=== PATIENT | female | born 1985 | race American Indian/Alaskan Native ===

== ENCOUNTER 2017-01-28 00:08 | Emergency (ER) | payer MEDICAID, MEDICARE ==
[2017-01-28 00:56] LABS: Basophils % (Auto) 0.4 % (0.0-1.8); Eosinophils % (Auto) 0.7 % (0.0-4.3); Hematocrit 37.3 % (30.3-42.9); Hemoglobin 12.4 gm/dl (10.1-14.3); Mean Corpuscular HGB Conc 33 % (30-34); Mean Corpuscular Hemoglobin 28 pg (28-32); Mean Corpuscular Volume 85 fl (79-97); Platelet Count 279 K/mm3 (140-440); Red Cell Distribution Width 13.1 % (13.2-15.2); White Blood Count 10.7 K/mm3 (4.5-11.0)
--- NOTE | 2017-01-28 02:05 | Ultrasound Report ---
FINAL REPORT PROCEDURE: US OB \T\gt; = 14 WEEKS FETUS TECHNIQUE: Real-time limited sonographic examination was performed for evaluation of size, position, heartbeat, fluid volume for each fetus with image documentation (1 or more fetuses). CPT 25508 HISTORY: 19 WEEKS PREG / VAG BLEEDING COMPARISON: No prior studies are available for comparison. FINDINGS: FETUS IUP: Single living intrauterine . Position: Breech. Placental position: Posterior, without previa . Amniotic fluid volume: Normal . Heart rate and rhythm: 151 BPM, Regular . anatomic survey: Not performed. MEASUREMENTS BPD: 3.5 centimeters corresponding to 17 weeks and 1 day. HC: 13.7 centimeters correspond is 17 weeks and 1 day. AC: 11.2 centimeters correspond is 17 weeks. FL: 2.5 centimeters correspond to 17 weeks and 3 days. Mean Gestational Age (composite criteria): 17 weeks and 1 day. Ratio biometry: Normal . Estimated Weight: 185 grams. Interval growth: No prior study available for comparison. Estimated Due Date (earliest scan): 07/07/2017. IMPRESSION: 1. Single living intrauterine gestation at approximately 17 weeks and 1 day. 2. EDC by US 07/07/2017.
[2017-01-28 03:58] LABS: Bilirubin,Urine NEG (Negative); Blood,Urine MOD (Negative); Ketones,Urine NEG (Negative); Leukocyte Esterase,Urine NEG (Negative); Mucus,Urine 1+ /HPF; Nitrite,Urine NEG (Negative); Uric Acid Crystals,Urine 2+; Urobilinogen,Urine < 2.0 mg/dL (<2.0)
[2017-01-28] MEDS ORDERED: TYLENOL PO ONE (04:02)
--- NOTE | 2017-01-28 04:11 | Emergency Department Report ---
HPI - General Chief Complaint: Vaginal Bleeding Time Seen by Provider: 01/28/17 03:32 - HPI HPI: This is a 31-year-old Afro-[place] female presents to the emergency department with complaint of 2-3 days of some vaginal bleeding with occasional clots as well as bilateral lower abdominal discomfort. The patient is about 18 or 19 weeks . With this she is with 2 previous stillbirths, a molar and 2 previous miscarriages with 3 live children. She called her [employer], Dr. Cobb, to tell her about the bleeding and abdominal pain and she was told to come to the emergency department for further evaluation. She has not taken anything for her symptoms prior to presentation. 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, recurrent infections) Hx Sickle Cell Disease: No - Surgical History Past Surgical History?: Yes Additional Surgical History: C SECTIONS X 3 - Social History Smoking Status: Never Smoker Substance Use Type: None - Medications Home Medications: Home Medications Medication Instructions Recorded Confirmed Last Taken Type ALBUTEROL Inhaler [Proair] 2 puff IH QID PRN 07/23/15 07/23/15 6 Months Ago History ARIPiprazole [Abilify] 15 mg PO DAILY 07/23/15 07/23/15 07/28/15 History DULoxetine [Cymbalta] 30 mg PO BID 07/23/15 07/23/15 07/28/15 History Pregabalin [Lyrica] 75 mg PO DAILY 07/23/15 07/23/15 07/28/15 History SUMAtriptan SUCCINATE [SUMAtriptan 50 mg PO DAILY 07/23/15 07/23/15 07/28/15 History Succinate] Ibuprofen [Motrin] 800 mg PO Q8HR PRN #60 tablet 07/29/15 Unknown Rx oxyCODONE /ACETAMINOPHEN [Percocet 1 tab PO Q6HR PRN #30 tablet 07/29/15 Unknown Rx 5/325] ED Review of Systems ROS: Stated complaint: 19 WEEKS PREG/ PASSING BLOOD CLOTS Other details as noted in HPI Comment: All other systems reviewed and negative Constitutional: denies: chills, fever Eyes: denies: eye pain, eye discharge, vision change ENT: denies: ear pain, throat pain Respiratory: denies: cough, shortness of breath, wheezing Cardiovascular: denies: chest pain, palpitations Gastrointestinal: abdominal pain. denies: nausea, vomiting Genitourinary: other (vaginal bleeding). denies: dysuria, discharge Musculoskeletal: denies: back pain, joint swelling, arthralgia Skin: denies: rash, lesions Neurological: denies: headache, weakness, paresthesias Physical Exam - Physical Exam Vital Signs: Vital Signs 01/28/17 00:14 Temperature 98.0 F Pulse Rate 85 Respiratory 22 Rate Blood Pressure 136/89 O2 Sat by Pulse 99 Oximetry Physical Exam: GENERAL: The patient is well-developed well-nourished. HEENT: Normocephalic. Atraumatic. Extraocular motions are intact. Patient has moist mucous membranes. Pupils equal reactive to light bilaterally. NECK: Supple. Trachea is midline. CHEST/LUNGS: Clear to auscultation. There is no respiratory distress noted. HEART/CARDIOVASCULAR: Regular. There is no tachycardia. There is no gallop rub or murmur. ABDOMEN: Abdomen is soft, nontender. Patient has normal bowel sounds. There is no abdominal distention. Gravid uterus is palpable just below the umbilicus. SKIN: Skin is warm and dry. NEURO: The patient is awake, alert, and oriented. The patient is cooperative. The patient has no focal neurologic deficits. The patient has normal speech and gait. MUSCULOSKELETAL: There is no tenderness or deformity. There is no limitation range of motion. There is no evidence of acute injury. ED Course Vital Signs 01/28/17 00:14 Temperature 98.0 F Pulse Rate 85 Respiratory 22 Rate Blood Pressure 136/89 O2 Sat by Pulse 99 Oximetry ED Medical Decision Making - Lab Data Result diagrams: 01/28/17 00:29 - Radiology Data Radiology results: report reviewed Obstetric ultrasound shows a live intrauterine at about 17 weeks. - Medical Decision Making 31-year-old female presents with a few days of some vaginal bleeding with clots and some lower abdominal discomfort. Labs are mostly unremarkable do not show any etiology of the patient's symptoms. Obstetric ultrasound shows a live intrauterine at about 17 weeks. Vital signs stable throughout ED course. No urinary tract infection. She was given some Tylenol for discomfort. She already has an appointment set up with her [employer] on Monday. With the bleeding, the patient has a diagnosis of threatened miscarriage. She will continue with vitamins. She will use Tylenol for discomfort. She will return to the ER with any worsening or symptoms or any acute distress. She understands and agrees to the plan. - Differential Diagnosis threatened Miscarriage, spontaneous miscarriage, , UTI, fibroids Critical Care Time: No Critical care attestation.: If time is entered above; I have spent that time in minutes in the direct care of this critically ill patient, excluding procedure time. ED Disposition Clinical Impression: Threatened miscarriage Qualifiers: Weeks of gestation: 17 weeks Qualified Code(s): Z3A.17 - 17 weeks gestation of Abdominal pain Qualifiers: Abdominal location: lower abdomen, unspecified Qualified Code(s): R10.30 - Lower abdominal pain, unspecified Disposition: TO HOME OR SELFCARE Is pt being admited?: No Condition: Stable Instructions: Threatened Miscarriage (ED), (ED) Additional Instructions: Please follow-up with Dr. Cobb on Monday as previously scheduled. Return to the emergency department with any worsening of the bleeding or abdominal discomfort, or any acute distress. Referrals: PRIMARY CARE, [Primary Care Provider] - 3-5 Days TANYA COBB MD [Staff Physician] - [facility] Time of Disposition: 04:11
[2017-01-28 04:52] VITALS: BP 141/71
== END 2017-01-28 04:25 | disposition home or self-care (01) ==
LOC: ED 00:08
DX: O20.0 Threatened abortion (principal); Z3A.17 17 weeks gestation of pregnancy; R10.30 Lower abdominal pain, unspecified
CPT/HCPCS: 36415; 76805; 81001; 84702; 85025; 86850; 86900; 86901

== ENCOUNTER 2017-03-15 20:01 | Outpatient (CLI) | payer MEDICARE ==
[2017-03-15] MEDS ORDERED: LACTATED RINGERS 500 ML IV ONE (20:18)
[2017-03-15 20:53] LABS: Bilirubin,Urine NEG (Negative); Blood,Urine NEG (Negative); Ketones,Urine TR mg/dL (Negative); Leukocyte Esterase,Urine NEG (Negative); Mucus,Urine 3+ /HPF; Nitrite,Urine NEG (Negative); Urobilinogen,Urine < 2.0 mg/dL (<2.0)
[2017-03-15 21:19] VITALS: BP 135/73
[2017-03-15 21:54] LABS: Hematocrit 33.9 % (30.3-42.9); Hemoglobin 11.5 gm/dl (10.1-14.3); Mean Corpuscular HGB Conc 34 % (30-34); Mean Corpuscular Hemoglobin 29 pg (28-32); Mean Corpuscular Volume 84 fl (79-97); Platelet Count 238 K/mm3 (140-440); Red Blood Count 4.05 M/mm3 (3.65-5.03); Red Cell Distribution Width 13.5 % (13.2-15.2); White Blood Count 8.8 K/mm3 (4.5-11.0)
[2017-03-15 22:06] LABS: Alanine Aminotransferase 11 units/L (7-56); Albumin 3.5 g/dL (3.9-5); Alkaline Phosphatase 51 units/L (35-129); Amylase 44 units/L (27-131); Blood Urea Nitrogen 3 mg/dL (7-17); Calcium 8.9 mg/dL (8.4-10.2); Carbon Dioxide 20 mmol/L (22-30); Glucose 83 mg/dL (65-100); Lipase 24 units/L (13-60)
[2017-03-15 22:07] LABS: Anion Gap 18 mmol/L; Chloride 99.3 mmol/L (98-107); Sodium 134 mmol/L (137-145)
[2017-03-15] MEDS ORDERED: ZOFRAN IV ONE (22:15)
[2017-03-15] MEDS ORDERED: TESSALON PERLES PO ONE (22:15)
== END 2017-03-15 23:08 | disposition home or self-care (01) ==
LOC: TRG 20:01
PROVIDERS: ATTEND Obstetrics & Gynecology
DX: O26.892 Other specified pregnancy related conditions, second trimester (principal); R10.9 Unspecified abdominal pain; Z3A.26 26 weeks gestation of pregnancy
CPT/HCPCS: 36415; 80053; 81001; 82150; 83690; 85027; 96360; J2405; J7120

== ENCOUNTER 2017-06-03 03:49 | Outpatient (CLI) | payer MEDICARE ==
[2017-06-03] MEDS ORDERED: LACTATED RINGERS 1,000 ML IV ONE (04:03)
[2017-06-03 04:13] VITALS: BP 139/73
[2017-06-03 05:16] LABS: Bacteria,Urine 1+ /HPF (Negative); Bilirubin,Urine NEG (Negative); Blood,Urine SM (Negative); Ketones,Urine NEG (Negative); Leukocyte Esterase,Urine TR (Negative); Mucus,Urine 3+ /HPF; Nitrite,Urine NEG (Negative); Protein,Urine <15 mg/dL mg/dL (Negative); Urobilinogen,Urine < 2.0 mg/dL (<2.0)
[2017-06-03] MEDS ORDERED: ANCEF IM ONE (05:30)
== END 2017-06-03 06:07 | disposition home or self-care (01) ==
LOC: TRG 03:49
PROVIDERS: ATTEND Obstetrics & Gynecology
DX: O47.03 False labor before 37 completed weeks of gestation, third trimester (principal); Z3A.34 34 weeks gestation of pregnancy
CPT/HCPCS: 59025; 81001; 96372; J0690

== ENCOUNTER 2017-08-09 14:44 | Outpatient (CLI) | payer MEDICARE | END 2017-08-09 14:45 | disposition home or self-care (01) | LOC: LABHHL 14:44 | PROVIDERS: ATTEND Surgery | DX: N61.1 Abscess of the breast and nipple (principal) | CPT/HCPCS: 87075; 87116 ==

== ENCOUNTER 2017-08-23 12:08 | Day surgery (SDC) | payer MEDICARE ==
[~2017-08-23 12:08] MED LIST: NACL 0.9% 1000 ML 1,000 ML IV SCH; PEPCID IV NR; SUBLIMAZE IV PRN; VERSED IV NR; ZOFRAN IV PRN
--- NOTE | 2017-08-23 12:32 | Anesthesia Day of Surgery ---
Anesthesia Day of Surgery - Day of Surgery Patient Examined: Yes Patient H&P Reviewed: Yes Patient is NPO: Yes
--- NOTE | 2017-08-23 12:35 | Anesthesia Consultation ---
Anesthesia Consult and Med Hx Date of service: 08/23/17 - Airway Anesthetic Teeth Evaluation: Chipped ROM Head & Neck: Adequate Mental/Hyoid Distance: Adequate Mallampati Class: Class II Intubation Access Assessment: Probably Good - Pulmonary Exam CTA: Yes (no wheeze) - Pre-Operative Health Status ASA Pre-Surgery Classification: ASA2, ASA3 Proposed Anesthetic Plan: General - Pulmonary Hx Smoking: No Hx Asthma: Yes (last used 3 months) Hx Respiratory Symptoms: No SOB: No COPD: No Hx Pneumonia: No Hx Sleep Apnea: No - Cardiovascular System Hx Hypertension: Yes (controlled) - Central Nervous System Hx Seizures: No Hx Back Pain: No Hx Psychiatric Problems: Yes - Gastrointestinal Hx Gastroesophageal Reflux Disease: Yes (Controlled w/ meds) - Endocrine Hx Renal Disease: Yes (lupus partial removal of kidney(L)) Hx End Stage Renal Disease: No Hx Non-Insulin Dependent Diabetes: No Hx Thyroid Disease: No Hx Hypothyroidism: No Hx Hyperthyroidism: No - Hematic Hx Anemia: No Hx Sickle Cell Disease: No - Other Systems Hx Alcohol Use: No Hx Substance Use: No Hx Obesity: Yes (BMI 34.9) - Additional Comments Anesthesia Medical History Comments: SLE
[2017-08-23] MEDS ORDERED: VANCOMYCIN/NS 1 GM/250 ML 1 GM/250 ML BAG IV SCH (13:00)
--- NOTE | 2017-08-23 13:01 | Short Stay Summary ---
Short Stay Documentation Date of service: 08/23/17 - History H&P: obtained from office - Allergies and Medications Current Medications: Allergies hydromorphone HCl [From Dilaudid] Allergy (Verified 01/28/17 00:14) Itching guaifenesin [From Robitussin] Adverse Reaction (Verified 03/15/17 20:17) Vomiting Latex, Natural Rubber Adverse Reaction (Unverified 05/05/15 08:38) Shortness of Breath morphine Adverse Reaction (Verified 07/23/15 10:30) Itching Must take Benadry along with Morphine IV contrast Adverse Reaction (Uncoded 06/27/17 06:45) Vomiting Home Medications Medication Instructions Recorded Confirmed Last Taken Type Vit-Fe Fumar-FA [ 1 tab PO QDAY 03/15/17 06/27/17 06/26/17 17: 00 History Vitamin] Docusate Sodium [Colace] 100 mg PO BID PRN #30 capsule 06/28/17 Unknown Rx Ferrous Sulfate [Feosol] 325 mg PO TID #90 tablet 06/28/17 Unknown Rx Ibuprofen [Motrin] 800 mg PO Q8HR PRN #30 tablet 06/28/17 Unknown Rx oxyCODONE /ACETAMINOPHEN [Percocet 1 tab PO Q6HR PRN #40 tablet 06/28/17 Unknown Rx 5/325] HYDROcodone/APAP 5-325 [[place] 1 each PO Q6HR PRN #30 tablet 08/23/17 Unknown Rx 5/325] Active Medications Famotidine (Pepcid) 20 mg IV PREOP NR Stop: 08/23/17 23:59 Fentanyl (Sublimaze) 50 mcg IV Q5MIN PRN PRN Reason: Pain , Severe (7-10) Stop: 08/23/17 20:00 Sodium Chloride (Nacl 0.9% 1000 Ml) 1,000 mls @ 100 mls/hr IV DIRECT TYE Vancomycin HCl (Vancomycin/Ns 1 Gm/250 Ml) 1 gm in 250 mls @ 167.007 mls/hr IV PREOP TYE; Protocol Midazolam HCl (Versed) 2 mg IV PREOP NR Stop: 08/23/17 23:59 Ondansetron HCl (Zofran) 4 mg IV ONCE PRN PRN Reason: Nausea And Vomiting Stop: 08/23/17 23:59 - Brief post op/procedure progress note Date of procedure: 08/23/17 Pre-op diagnosis: Left breast abscess Post-op diagnosis: same Procedure: Left breast incision and drainage of left breast abscess Anesthesia: GETA Findings: Known left breast abscess at the 12:00 and 8/9:00 positions with 100 cc pus drained Surgeon: LINDA PANG Estimated blood loss: minimal Specimen disposition: to lab Condition: stable - Disposition Condition at discharge: Good Disposition: [id number] TO HOME OR SELFCARE Short Stay Discharge Plan Activity: no restrictions, other Diet: regular (do not remove dressing) Follow up with: LINDA HARDY MD [Primary Care Provider] - 7 Days LINDA PANG MD [Staff Physician] - 08/24/17 (at 4:15 PM) Prescriptions: Clindamycin [Clindamycin CAP] 300 mg PO Q6H #28 capsule
[2017-08-23] MEDS ORDERED: XYLOCAINE MPF 2% ONE (14:05)
[2017-08-23] MEDS ORDERED: DIPRIVAN 10 MG/ML IV ONE (14:05)
[2017-08-23] MEDS: VANCOMYCIN/0.45 NS 1 GM/250 ML 1 GM/250 ML BAG IV NR ×2 (14:18→14:48)
[2017-08-23] MEDS ORDERED: XYLOCAINE 1% 20 mL ONE (15:49)
[2017-08-23] MEDS ORDERED: MARCAINE 0.25% INFILTRATI ONE (15:49)
[2017-08-23] MEDS ORDERED: NACL P/F VIAL (10 ML) 10 ML ONE (15:49)
[2017-08-23] MEDS ORDERED: VANCOMYCIN VIAL ONE (15:49)
--- NOTE | 2017-08-23 16:15 | Operative Report ---
Operative Report Operative Report: Date of service: 08/23/2017 Preoperative diagnosis: Left breast abscess Post operative diagnoses: Same Operative procedure: Left breast abscess incision and drainage Surgeon: Michelle Sierra M.D. Anesthesia: Gen. Findings: Known left breast abscess at the 12 and 8/9 o'clock position of the left breast with incision and drainage performed with 100 cc of pus drained and Pulsavac Complications: None EBL: Minimal Drains: Kierra drain Disposition: PACU in good condition Indications for operative procedure: This is a 32-year-old premenopausal -[place] lady who has been followed closely in my clinic for persistent left breast abscess. Patient has undergone multiple ultrasound-guided left breast abscess aspirations with no resolution and persistent disease. Given persistence of infection, patient known MRSA positive, recommendation were to proceed to the operating room for surgical incision and drainage with drain placement. Patient wished to proceed with the above procedure. Procedure in detail: The patient was taken to the operating room and was laid supine. Gen. anesthesia was administered. The left breast was prepped and draped in the normal sterile operative fashion. Ultrasound was used to identify the area of known abscess at the 12 and 8/9:00 positions, flutuance noted on examination. A Periareolar upper inner incision was made around the 9: 00 position with a 15 blade knife and dissection taken down to the subcutaneous tissues. Abscess was encountered and suctioned and drained; 100 cc of pus drained. Cultures were taken. Left breast was pulsavac with antibiotic irrigation. No additional areas of drainage were noted on ultrasound. Hemostasis was noted. The breast wound cavity was then packed with iodoform and a kierra drain was placed and sutured in place. Gauze and breast binder were placed. She tolerated the procedure very well and was awakened from anesthesia and transferred to pacu in good condition. Patient to follow up with me tomorrow in my office.
[2017-08-23] MEDS ORDERED: NACL 0.9% IR ONE (16:17)
[2017-08-23] MEDS ORDERED: WATER FOR IRRIG STERILE IR ONE (16:17)
[2017-08-23] MEDS ORDERED: NACL P/F VIAL (10 ML) INFILTRATI ONE (16:17)
[2017-08-23] MEDS ORDERED: VANCOMYCIN VIAL IRRIGATION ONE (16:17)
[2017-08-23] MEDS: SUBLIMAZE IV PRN ×2 (17:45→18:00)
[2017-08-23 18:10] VITALS: BP 141/59
[2017-08-23] MEDS ORDERED: NORCO 5/325 PO PRN (18:19)
== END 2017-08-23 12:09 | disposition home or self-care (01) ==
LOC: OR 12:08
PROVIDERS: ATTEND Surgery
DX: N61.1 Abscess of the breast and nipple (principal); B95.62 Methicillin resistant Staphylococcus aureus infection as the cause of diseases classified elsewhere; I10 Essential (primary) hypertension; J45.909 Unspecified asthma, uncomplicated; K21.9 Gastro-esophageal reflux disease without esophagitis; M32.14 Glomerular disease in systemic lupus erythematosus; E66.9 Obesity, unspecified; Z79.899 Other long term (current) drug therapy; Z68.34 Body mass index [BMI] 34.0-34.9, adult; Z88.6 Allergy status to analgesic agent; Z88.8 Allergy status to other drugs, medicaments and biological substances; Z91.040 Latex allergy status; Z91.048 Other nonmedicinal substance allergy status
CPT/HCPCS: 10060; 81025; 87075; 87116; A4217; J2250; J2704; J3010; J3370; J7030

== ENCOUNTER 2017-11-07 09:03 | Outpatient (CLI) | payer MEDICARE ==
--- NOTE | 2017-11-07 10:02 | Mammography Report ---
BILATERAL DIGITAL DIAGNOSTIC MAMMOGRAM with CAD: 11/07/17 09:03:00 CLINICAL: Status post bilateral reduction mammoplasty. COMPARISON:None. FINDINGS: The breasts are mostly fatty. Minimal postsurgical scar in the right breast. A prominent left outer benign surgical scar.No mass, architectural distortion or suspicious calcifications. IMPRESSION: No mammographic evidence of malignancy. BI-RADS CATEGORY: 2 - - Benign RECOMMENDATION: Routine mammographic screening in one year. ACR BI-RADS MAMMOGRAPHIC CODES: 0 = Needs additional imaging evaluation; 1 = Negative; 2 = Benign; 3 = Probably benign; 4 = Suspicious; 5 = Malignant; 6 = Known biopsy-proven malignancy COMMENT: 1. Dense breast tissue, i.e., adenosis, fibrocystic changes, etc., may obscure an underlying neoplasm. 2. Approximately 10% of cancers are not detected with mammography. 3. A negative mammography report should not delay biopsy if a clinically suspicious mass is present. COMMENT: Patient follow-up letters are generated by our [employer] application.
== END 2017-11-07 09:04 | disposition home or self-care (01) ==
LOC: SPVWC 09:03
PROVIDERS: ATTEND Surgery
DX: N61.1 Abscess of the breast and nipple (principal); I10 Essential (primary) hypertension; J44.9 Chronic obstructive pulmonary disease, unspecified
CPT/HCPCS: 77066